=== PATIENT | female | born 2000 | race Caucasian/White ===

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

== ENCOUNTER 2024-05-24 19:17 | Emergency (ER) | payer OTHER ==
[2024-05-24] MEDS ORDERED: Acetaminophen 325 MG TAB ONE (19:57)
[2024-05-24] MEDS ORDERED: Ondansetron ODT 4 MG TAB ONE (19:57)
[2024-05-24 20:18] LABS: Bacteria/HPF None Seen HPF (None Seen); Bilirubin Negative (Negative); Blood, Urine 1+ (Negative); CAUTI Indications for Culture Fever or rigors; Clarity Clear (Clear); Glucose, Urine (Dipstick) Normal (Negative); Ketone, Urine Negative (Negative); Leukocyte Negative Leu/uL (Negative); Nitrite Negative (Negative); Protein, Urine (Dipstick) Negative (Neg-Trace); RBC/HPF 0-3 HPF (0-3); Specific Gravity, Urine 1.005 (1.002-1.036); Squamous Epithelial 0-3 HPF (0-3); Urobilinogen Normal mg/dL (Less than 2); WBC/HPF 0-3 HPF (0-3)
[2024-05-24 20:30] LABS: Urine Culture Reflex No No
== END 2024-05-24 20:58 | disposition home or self-care (01) ==
LOC: ERS 19:17
DX: B34.9 Viral infection, unspecified (principal); R51.9 Headache, unspecified; R11.2 Nausea with vomiting, unspecified; F17.290 Nicotine dependence, other tobacco product, uncomplicated
CPT/HCPCS: 81001; 87081; 87428; 87430; 99284; Q0162

== ENCOUNTER 2025-03-07 02:07 | Emergency (ER) | payer MEDICAID, OTHER ==
[2025-03-07] MEDS ORDERED: Acetaminophen 325 MG TAB ONE (03:58)
== END 2025-03-07 04:07 | disposition home or self-care (01) ==
LOC: ERS 02:07
DX: K04.7 Periapical abscess without sinus (principal); K02.9 Dental caries, unspecified
CPT/HCPCS: 99282